=== PATIENT | male | born 1995 | race Caucasian/White ===

== ENCOUNTER 2017-07-22 01:54 | Emergency (ER) | payer OTHER ==
[~2017-07-22] VITALS: Ht 170.2 cm; Wt 65.8 kg
[~2017-07-22 01:54] MED LIST: AEROCHAMBER MI1 EACH MC; AZITHROMYCIN 2250 MG PO; FLEXERIL PO; HYDROXYZINE HCL25 M2 PO; KEFLEX500 MG PO; MEDROLDOSEPACK PO; NAPROSYN500 MG PO; NOHOMEMEDICATIONS; PENICILLIN VK500 M1 PO; PERCOCET 5-3251 EACH; PREDNISONE 20 M20 M1 PO; PROAIR HFA8.5 GM INH; PROAIR HFA8.5 GM PO; ZPAK PO
[2017-07-22 02:29] LABS: INFLUENZA A ANTIGEN None Detected (None Detect); INFLUENZA B ANTIGEN None Detected (None Detect)
[2017-07-22] MEDS ORDERED: AZITHROMYCIN 2250 MG PO (02:36)
[2017-07-22 02:40] VITALS: BP 132/76
== END 2017-07-22 02:40 | disposition home or self-care (01) ==
LOC: M.ERS 01:54
PROVIDERS: Emergency Medicine
DX: J40 Bronchitis, not specified as acute or chronic (principal); F10.99 Alcohol use, unspecified with unspecified alcohol-induced disorder; I42.9 Cardiomyopathy, unspecified

== ENCOUNTER 2018-04-14 18:34 | Emergency (ER) | payer OTHER ==
[~2018-04-14] VITALS: Ht 170.2 cm; Wt 68.5 kg
[2018-04-14] MEDS ORDERED: TRAMADOL 50 MG50 MG PO (19:43)
[2018-04-14] MEDS ORDERED: CENTANY30 GM TOP (19:43)
[2018-04-14] MEDS ORDERED: NABUMETONE 750750 M1 PO (19:43)
[2018-04-14] MEDS ORDERED: AUGMENTIN 875-1 EACH PO (19:45)
[2018-04-14 19:55] VITALS: BP 128/65
== END 2018-04-14 19:57 | disposition home or self-care (01) ==
LOC: M.ERS 18:34
DX: S61.452A Open bite of left hand, initial encounter (principal); F41.9 Anxiety disorder, unspecified; L40.9 Psoriasis, unspecified; W54.0XXA Bitten by dog, initial encounter; Y93.89 Activity, other specified; Y92.89 Other specified places as the place of occurrence of the external cause; Y99.8 Other external cause status

== ENCOUNTER → 2019-04-03 | Outpatient (CLI) | payer OTHER ==
[~2019-04-03] MED LIST changes: +AUGMENTIN 875-1 EACH PO; +CENTANY30 GM TOP; +NABUMETONE 750750 M1 PO; +TRAMADOL 50 MG50 MG PO
== END ==
LOC: M.RAD 12:50
DX: R07.89 Other chest pain (principal); R06.02 Shortness of breath

== ENCOUNTER 2020-10-10 12:40 | Emergency (ER) | payer OTHER ==
[~2020-10-10] VITALS: Ht 170.2 cm; Wt 68.0 kg
[2020-10-10] MEDS ORDERED: AMOXICILLIN 50500 MG (12:53)
[2020-10-10] MEDS ORDERED: HYDROCODON-ACE1 EAC7 PO (12:53)
[2020-10-10] MEDS ORDERED: CLEOCIN HCL300 MG PO (13:32)
[2020-10-10] MEDS ORDERED: LIDOCAINE VISC100 ML SWISH&SPIT (13:34)
[2020-10-10] MEDS ORDERED: ONDANSETRON HCL4 M2 PO (13:34)
[2020-10-10 14:05] VITALS: BP 151/78
== END 2020-10-10 14:06 | disposition home or self-care (01) ==
LOC: M.ERS 12:40
DX: K06.8 Other specified disorders of gingiva and edentulous alveolar ridge (principal); L40.9 Psoriasis, unspecified; F41.9 Anxiety disorder, unspecified; Z79.899 Other long term (current) drug therapy; Z79.2 Long term (current) use of antibiotics